=== PATIENT | female | born 1930 | race Two or more races ===

== ENCOUNTER → 2016-07-31 | Outpatient (CLI) | payer OTHER | END | disposition home or self-care (01) | LOC: LAB 13:50 | DX: Z80.0 Family history of malignant neoplasm of digestive organs (principal); N18.2 Chronic kidney disease, stage 2 (mild) | CPT/HCPCS: 82270 ==

== ENCOUNTER → 2016-08-19 | Outpatient (CLI) | payer OTHER ==
[2016-08-19 12:15] LABS: Hematocrit 47.3 % (36.0-46.0); Hemoglobin 15.8 g/dL (12.2-16.2); Mean Corpuscular Hemoglobin 30.5 pg (28.0-32.0); Mean Corpuscular Hgb Conc. 33.5 g/dL (32.0-36.0); Mean Corpuscular Volume 91.3 fL (80.0-100.0); Mean Platelet Volume 8.1 fL (7.4-10.4); Platelet Count (auto) 267 10^3/uL (140-450); Red Cell Distribution Width 13.7 % (11.6-16.0); White Blood Cell 6.3 10^3/uL (4.4-10.8)
[2016-08-19 12:28] LABS: Urine Bilirubin Negative (Negative); Urine Blood Negative /uL (Negative); Urine Color Yellow (Yellow); Urine Glucose Normal (Normal); Urine Ketone Negative (Negative); Urine Nitrite Negative (Negative); Urine RBC <1 /hpf (0 - 4); Urine Urobilinogen Normal (Negative); Urine pH 5.5 (5.0-8.0)
[2016-08-19 12:42] LABS: Metamyelocytes % 0; Myelocytes % 0; Promyelocytes % 0; Reactive Lymphocytes 0
[2016-08-19 12:59] LABS: Albumin 3.9 g/dL (3.4-5.0); BUN/Creatinine Ratio 15.4; Bilirubin, Total 1.4 mg/dL (0.2-1.0); Calcium 9.7 mg/dL (8.5-10.1); Potassium 4.1 mmol/L (3.5-5.1); Total Protein 7.9 g/dL (6.4-8.2)
[2016-08-19 14:28] LABS: Platelet Estimate Adequate; RBC Morphology Normal
== END | disposition home or self-care (01) ==
LOC: LAB 11:43
DX: N18.2 Chronic kidney disease, stage 2 (mild) (principal); Z80.0 Family history of malignant neoplasm of digestive organs
CPT/HCPCS: 36415; 80053; 80061; 81001; 84443; 85007; 85027

== ENCOUNTER → 2017-03-10 | Outpatient (CLI) | payer OTHER ==
[2017-03-10 10:28] LABS: Urine Bilirubin Negative (Negative); Urine Blood Negative /uL (Negative); Urine Color Yellow (Yellow); Urine Glucose Normal (Normal); Urine Ketone Negative (Negative); Urine Nitrite Negative (Negative); Urine RBC <1 /hpf (0 - 4); Urine Squamous Epithelial Cell FEW /hpf (<5); Urine Urobilinogen Normal (Negative); Urine pH 6.5 (5.0-8.0)
[2017-03-10 10:35] LABS: Hematocrit 45.5 % (36.0-46.0); Hemoglobin 15.5 g/dL (12.2-16.2); Mean Corpuscular Hemoglobin 31.8 pg (28.0-32.0); Mean Corpuscular Hgb Conc. 34.1 g/dL (32.0-36.0); Mean Corpuscular Volume 93.4 fL (80.0-100.0); Mean Platelet Volume 7.7 fL (6.9-10.8); Platelet Count (auto) 210 10^3/uL (140-450); Red Cell Distribution Width 13.7 % (11.8-14.3); White Blood Cell 5.6 10^3/uL (4.4-10.8)
[2017-03-10 10:54] LABS: Metamyelocytes % 0; Myelocytes % 0; Promyelocytes % 0; Reactive Lymphocytes 0
[2017-03-10 10:59] LABS: Albumin 3.7 g/dL (3.4-5.0); Bilirubin, Total 1.4 mg/dL (0.2-1.0); Calcium 9.6 mg/dL (8.5-10.1); Potassium 4.1 mmol/L (3.5-5.1); Total Protein 7.4 g/dL (6.4-8.2)
[2017-03-10 15:30] LABS: Platelet Estimate Adequate
[2017-03-10 15:31] LABS: Ovalocytes FEW; Stomatocytes Few
== END | disposition home or self-care (01) ==
LOC: LAB 09:40
PROVIDERS: ATTEND Nurse Practitioner
DX: E03.9 Hypothyroidism, unspecified (principal)
CPT/HCPCS: 36415; 80053; 80061; 81001; 82306; 82607; 83036; 84443; 85007; 85027

== ENCOUNTER 2017-05-09 13:33 | Emergency (ER) | payer OTHER ==
[~2017-05-09] VITALS: Ht 162.6 cm; Wt 79.8 kg
[2017-05-09 13:40] VITALS: BP 140/72
== END 2017-05-09 14:40 | disposition left against medical advice (07) ==
LOC: ER 13:33
DX: K08.89 Other specified disorders of teeth and supporting structures (principal); Z53.21 Procedure and treatment not carried out due to patient leaving prior to being seen by health care provider

== ENCOUNTER → 2018-03-18 | Outpatient (CLI) | payer OTHER ==
[2018-03-18 10:13] LABS: Urine Blood Negative /uL (Negative); Urine Specific Gravity 1.019 (1.001-1.035)
[2018-03-18 10:24] LABS: Hematocrit 46.4 % (36.0-46.0); Hemoglobin 15.8 g/dL (12.2-16.2); Mean Corpuscular Hemoglobin 31.5 pg (28.0-32.0); Mean Corpuscular Hgb Conc. 34.1 g/dL (32.0-36.0); Mean Corpuscular Volume 92.5 fL (80.0-100.0); Platelet Count (auto) 217 10^3/uL (140-450); Red Blood Cells 5.02 10^6/uL (4.0-5.20); Red Cell Distribution Width 13.9 % (11.8-14.3); White Blood Cell 6.5 10^3/uL (4.4-10.8)
[2018-03-18 10:30] LABS: Basophils % (manual) 0 (0.0-2.0); Blast Cells 0; Metamyelocytes % 0; Myelocytes % 0; Promyelocytes % 0; Reactive Lymphocytes 0
[2018-03-18 11:11] LABS: Albumin 3.7 g/dL (3.4-5.0); BUN/Creatinine Ratio 19.1; Bilirubin, Total 1.1 mg/dL (0.2-1.0); Calcium 9.6 mg/dL (8.5-10.1); Potassium 4.2 mmol/L (3.5-5.1); Total Protein 7.6 g/dL (6.4-8.2)
[2018-03-18 11:16] LABS: Band Neutrophils % (manual) 1; Eosinophils % (manual) 8 (0-7); Lymphocytes % (manual) 63 (10.0-50.0); Monocytes % (manual) 6 (0-12)
== END | disposition home or self-care (01) ==
LOC: LAB 09:39
PROVIDERS: ATTEND Nurse Practitioner
DX: E03.9 Hypothyroidism, unspecified (principal); E78.5 Hyperlipidemia, unspecified
CPT/HCPCS: 36415; 80053; 80061; 81003; 84443; 85007; 85027

== ENCOUNTER → 2018-08-03 | Outpatient (CLI) | payer OTHER ==
[2018-08-03 11:03] LABS: Hematocrit 45.1 % (36.0-46.0); Hemoglobin 15.3 g/dL (12.2-16.2); Mean Corpuscular Hemoglobin 31.2 pg (28.0-32.0); Mean Corpuscular Volume 91.8 fL (80.0-100.0); Platelet Count (auto) 218 10^3/uL (140-450); Red Blood Cells 4.91 10^6/uL (4.0-5.20); Red Cell Distribution Width 13.3 % (11.8-14.3); White Blood Cell 6.6 10^3/uL (4.4-10.8)
[2018-08-03 11:19] LABS: Urine Bacteria NONE SEEN /hpf (None Seen); Urine Blood Negative /uL (Negative); Urine Mucus FEW (None Seen); Urine WBC 63 /hpf (0 - 5)
[2018-08-03 11:32] LABS: Potassium 3.9 mmol/L (3.5-5.1)
[2018-08-03 11:38] LABS: BUN/Creatinine Ratio 17.5; Calcium 9.5 mg/dL (8.5-10.1)
[2018-08-03 11:42] LABS: Band Neutrophils % (manual) 0; Blast Cells 0; Metamyelocytes % 0; Myelocytes % 0; Promyelocytes % 0; Reactive Lymphocytes 0
[2018-08-03 13:24] LABS: Basophils % (manual) 1 (0.0-2.0); Eosinophils % (manual) 4 (0-7); Lymphocytes % (manual) 62 (10.0-50.0); Monocytes % (manual) 6 (0-12)
== END | disposition home or self-care (01) ==
LOC: LAB 09:19
PROVIDERS: ATTEND Nurse Practitioner
DX: E78.5 Hyperlipidemia, unspecified (principal)
CPT/HCPCS: 36415; 80048; 80061; 81001; 84443; 85007; 85027

== ENCOUNTER → 2018-10-26 | Outpatient (CLI) | payer OTHER | END | disposition home or self-care (01) | LOC: LAB 09:08 | PROVIDERS: ATTEND Internal Medicine | DX: K59.01 Slow transit constipation (principal) | CPT/HCPCS: 86677 ==

== ENCOUNTER 2018-11-25 09:51 | Day surgery (SDC) | payer OTHER ==
[2018-11-22 11:02] LABS: Basophils # (auto) 0.1 uL; Basophils % (auto) 0.9 % (0.0-2.0); Eosinophils # (auto) 0.2 uL; Eosinophils % (auto) 3.4 % (0.0-7.0); Hematocrit 46.2 % (36.0-46.0); Hemoglobin 15.5 g/dL (12.2-16.2); Lymphocytes # (auto) 4.3 uL; Mean Corpuscular Hemoglobin 30.9 pg (28.0-32.0); Mean Corpuscular Hgb Conc. 33.5 g/dL (32.0-36.0); Mean Corpuscular Volume 92.2 fL (80.0-100.0); Monocytes # (auto) 0.4 uL; Monocytes % (auto) 6.5 % (0.0-12.0); Neutrophils # (auto) 1.8 uL; Neutrophils % (auto) 26.8 % (37.0-80.0); Nucleated Red Blood Cells % 0.1 %; Platelet Count (auto) 243 10^3/uL (140-450); Red Blood Cells 5.01 10^6/uL (4.0-5.20); Red Cell Distribution Width 13.6 % (11.8-14.3); White Blood Cell 6.9 10^3/uL (4.4-10.8)
[2018-11-22 11:03] LABS: Urine Bacteria NONE SEEN /hpf (None Seen); Urine Blood Negative /uL (Negative); Urine Specific Gravity 1.016 (1.001-1.035); Urine WBC 15 /hpf (0 - 5)
[2018-11-22 11:11] LABS: Lymphocytes % (auto) 62.4 % (10.0-50.0)
[2018-11-22 11:13] LABS: INR 0.9 (0.9-1.15); Partial Thromboplastin Time 26.7 sec (23.64-32.05)
[~2018-11-25] VITALS: Ht 165.1 cm; Wt 77.1 kg
[~2018-11-25 09:51] MED LIST: LEVO25TA6 PO
[2018-11-25] MEDS ORDERED: SODIUM CHLORIDE LOCK 10 ML ONE (09:58)
[2018-11-25] MEDS ORDERED: LIDOCAINE VISCOUS 2% 15ML UD ONE (09:58)
[2018-11-25] MEDS ORDERED: diphenhdrAMINE HCL 50 MG/1 ML VL ONE (09:58)
[2018-11-25] MEDS: MIDAZOLAM HCL 5 MG/ML-1ML VIAL ONE ×3 (11:02→11:14)
[2018-11-25] MEDS: fentaNYL CITRATE 100 MCG/2 ML VL ONE ×3 (11:02→11:14)
[2018-11-25 11:52] VITALS: BP 115/67
== END 2018-11-25 12:15 | disposition home or self-care (01) ==
LOC: GI 09:51
PROVIDERS: ATTEND Internal Medicine Gastroenterology
DX: K57.30 Diverticulosis of large intestine without perforation or abscess without bleeding (principal); K29.50 Unspecified chronic gastritis without bleeding; K64.8 Other hemorrhoids; E66.9 Obesity, unspecified; Z68.28 Body mass index [BMI] 28.0-28.9, adult
CPT/HCPCS: 36415; 43239; 45378; 81001; 85025; 85610; 85730; 88305; 88342; J2250; J3010; J7030; 99152; 99153

== ENCOUNTER → 2019-01-26 | Outpatient (CLI) | payer OTHER ==
[2019-01-26 11:18] LABS: Albumin 3.6 g/dL (3.4-5.0); Calcium 9.7 mg/dL (8.5-10.1)
[2019-01-26 11:22] LABS: BUN/Creatinine Ratio 23.5; Bilirubin, Total 1.2 mg/dL (0.2-1.0); Total Protein 7.7 g/dL (6.4-8.2)
[2019-01-26 12:02] LABS: Hematocrit 45.7 % (36.0-46.0); Hemoglobin 15.4 g/dL (12.2-16.2); Mean Corpuscular Hemoglobin 31.1 pg (28.0-32.0); Mean Corpuscular Hgb Conc. 33.6 g/dL (32.0-36.0); Mean Corpuscular Volume 92.5 fL (80.0-100.0); Platelet Count (auto) 206 10^3/uL (140-450); Red Blood Cells 4.94 10^6/uL (4.0-5.20); Red Cell Distribution Width 13.7 % (11.8-14.3); White Blood Cell 6.4 10^3/uL (4.4-10.8)
[2019-01-26 12:25] LABS: Band Neutrophils % (manual) 0; Basophils % (manual) 0 (0.0-2.0); Blast Cells 0; Metamyelocytes % 0; Myelocytes % 0; Promyelocytes % 0
[2019-01-26 14:03] LABS: Eosinophils % (manual) 2 (0-7); Lymphocytes % (manual) 63 (10.0-50.0); Monocytes % (manual) 5 (0-12); Reactive Lymphocytes 1
== END | disposition home or self-care (01) ==
LOC: LAB 09:46
PROVIDERS: ATTEND Internal Medicine
DX: E03.9 Hypothyroidism, unspecified (principal); K21.9 Gastro-esophageal reflux disease without esophagitis
CPT/HCPCS: 36415; 80053; 84439; 84443; 85007; 85027

== ENCOUNTER → 2019-08-02 | Outpatient (CLI) | payer OTHER ==
[2019-08-02 11:03] LABS: Hematocrit 46.1 % (36.0-46.0); Hemoglobin 15.8 g/dL (12.2-16.2); Mean Corpuscular Hemoglobin 31.6 pg (28.0-32.0); Mean Corpuscular Hgb Conc. 34.3 g/dL (32.0-36.0); Mean Corpuscular Volume 92.2 fL (80.0-100.0); Platelet Count (auto) 221 10^3/uL (140-450); Red Cell Distribution Width 13.4 % (11.8-14.3); White Blood Cell 4.5 10^3/uL (4.4-10.8)
[2019-08-02 11:05] LABS: Urine Bacteria NONE SEEN /hpf (None Seen); Urine Blood Negative /uL (Negative); Urine Specific Gravity 1.014 (1.001-1.035); Urine WBC 6 /hpf (0 - 5)
[2019-08-02 11:07] LABS: Band Neutrophils % (manual) 0; Basophils % (manual) 0 (0.0-2.0); Blast Cells 0; Metamyelocytes % 0; Myelocytes % 0; Promyelocytes % 0; Reactive Lymphocytes 0
[2019-08-02 11:26] LABS: Eosinophils % (manual) 5 (0-7); Lymphocytes % (manual) 63 (10.0-50.0); Monocytes % (manual) 2 (0-12)
[2019-08-02 11:57] LABS: Albumin 3.6 g/dL (3.4-5.0); Calcium 9.9 mg/dL (8.5-10.1); Potassium 4.1 mmol/L (3.5-5.1)
[2019-08-02 12:03] LABS: BUN/Creatinine Ratio 20.5; Bilirubin, Total 1.1 mg/dL (0.2-1.0); Total Protein 7.7 g/dL (6.4-8.2)
== END | disposition home or self-care (01) ==
LOC: LAB 10:19
PROVIDERS: ATTEND Nurse Practitioner
DX: E78.5 Hyperlipidemia, unspecified (principal); E03.9 Hypothyroidism, unspecified
CPT/HCPCS: 36415; 80053; 80061; 81001; 84443; 85007; 85027

== ENCOUNTER → 2019-08-13 | Emergency (ER) | payer OTHER ==
[~2019-08-13] VITALS: Ht 165.1 cm; Wt 79.4 kg
[~2019-08-13] MED LIST changes: +cefTRIAXone 1GM/50ML D5W 50 ML IV ONE
[2019-08-13 02:02] LABS: Hematocrit 48.5 % (36.0-46.0); Hemoglobin 16.3 g/dL (12.2-16.2); Mean Corpuscular Hgb Conc. 33.6 g/dL (32.0-36.0); Mean Corpuscular Volume 92.4 fL (80.0-100.0); Platelet Count (auto) 243 10^3/uL (140-450); Red Blood Cells 5.25 10^6/uL (4.0-5.20); Red Cell Distribution Width 13.2 % (11.8-14.3); White Blood Cell 6.7 10^3/uL (4.4-10.8)
[2019-08-13 02:06] LABS: Basophils % (manual) 0 (0.0-2.0); Blast Cells 0; Metamyelocytes % 0; Myelocytes % 0; Promyelocytes % 0
[2019-08-13 02:17] LABS: INR 0.99 (0.9-1.15); Partial Thromboplastin Time 28.6 sec (23.64-32.05)
[2019-08-13 02:19] LABS: Alanine Aminotransferase 36 U/L (13-56); Albumin 3.9 g/dL (3.4-5.0); Anion Gap 7 (5-15); Aspartate Aminotransferase 34 U/L (15-37); BUN/Creatinine Ratio 16.7; Blood Urea Nitrogen 15 mg/dL (7-18); Calcium 9.8 mg/dL (8.5-10.1); Carbon Dioxide 25 mmol/L (21-32); Chloride 106 mmol/L (98-107); GFR African American 76 mL/min; GFR Non-African American 63 mL/min; Glucose 100 mg/dL (74-106); Magnesium 2.1 mg/dL (1.6-2.6); Potassium 3.6 mmol/L (3.5-5.1); Sodium 138 mmol/L (136-145)
[2019-08-13 02:25] LABS: Alkaline Phosphatase 98 U/L (45-117); Bilirubin, Total 0.6 mg/dL (0.2-1.0); Total Protein 8.2 g/dL (6.4-8.2)
[2019-08-13 03:06] LABS: Band Neutrophils % (manual) 1; Eosinophils % (manual) 1 (0-7); Lymphocytes % (manual) 68 (10.0-50.0); Monocytes % (manual) 3 (0-12)
[2019-08-13 03:07] LABS: Reactive Lymphocytes 2
[2019-08-13 04:04] LABS: Urine Bacteria FEW /hpf (None Seen); Urine Blood Negative /uL (Negative); Urine Hyaline Cast FEW /lpf (0 - 2); Urine Mucus FEW (None Seen); Urine WBC 123 /hpf (0 - 5)
[2019-08-13 08:01] VITALS: BP 91/64
== END | disposition home or self-care (01) ==
LOC: ER 01:28
DX: R07.89 Other chest pain (principal); N39.0 Urinary tract infection, site not specified; R14.0 Abdominal distension (gaseous); E78.5 Hyperlipidemia, unspecified; E11.9 Type 2 diabetes mellitus without complications
CPT/HCPCS: 36415; 71045; 80053; 81001; 83735; 83880; 84484; 85007; 85027; 85610; 85730; 93005; 96365; 99285; J0696

== ENCOUNTER 2019-09-19 13:24 | Emergency (ER) | payer OTHER ==
[~2019-09-19] VITALS: Ht 162.6 cm; Wt 77.1 kg
[~2019-09-19 13:24] MED LIST changes: -cefTRIAXone 1GM/50ML D5W 50 ML IV ONE
[2019-09-19] MEDS ORDERED: PANTOPRAZOLE 40 MG/10 ML VIAL INJ IV STA (13:32)
[2019-09-19] MEDS ORDERED: SODIUM CHLORIDE 0.9% 500 ML IVB ONE (13:32)
[2019-09-19] MEDS ORDERED: ONDANSETRON HCL 4 MG/2 ML VIAL IV ONE (13:45)
[2019-09-19 14:16] LABS: Hematocrit 43.3 % (36.0-46.0); Hemoglobin 14.9 g/dL (12.2-16.2); Mean Corpuscular Hemoglobin 31.2 pg (28.0-32.0); Mean Corpuscular Hgb Conc. 34.3 g/dL (32.0-36.0); Platelet Count (auto) 183 10^3/uL (140-450); Red Blood Cells 4.76 10^6/uL (4.0-5.20); Red Cell Distribution Width 13.3 % (11.8-14.3); White Blood Cell 12.9 10^3/uL (4.4-10.8)
[2019-09-19 14:21] LABS: Basophils % (manual) 0 (0.0-2.0); Blast Cells 0; Eosinophils % (manual) 0 (0-7); Metamyelocytes % 0; Myelocytes % 0; Promyelocytes % 0; Reactive Lymphocytes 0
[2019-09-19 14:31] LABS: Band Neutrophils % (manual) 1; Lymphocytes % (manual) 9 (10.0-50.0); Monocytes % (manual) 2 (0-12)
[2019-09-19 14:36] LABS: Albumin 3.4 g/dL (3.4-5.0); Calcium 9.4 mg/dL (8.5-10.1); Potassium 3.5 mmol/L (3.5-5.1)
[2019-09-19 14:39] LABS: Bilirubin, Total 1.7 mg/dL (0.2-1.0); Total Protein 7.1 g/dL (6.4-8.2)
[2019-09-19 15:36] LABS: Urine WBC None Seen /hpf (0 - 5)
[2019-09-19 15:47] LABS: Urine Bacteria NONE SEEN /hpf (None Seen); Urine Blood Negative /uL (Negative); Urine Mucus FEW (None Seen); Urine Specific Gravity 1.015 (1.001-1.035)
[2019-09-19 16:17] VITALS: BP 110/58
== END 2019-09-19 16:33 | disposition home or self-care (01) ==
LOC: EDBD 13:24 → ER 13:24
DX: K29.00 Acute gastritis without bleeding (principal); R11.2 Nausea with vomiting, unspecified
CPT/HCPCS: 36415; 74176; 80053; 81001; 83690; 85007; 85027; 96361; 96374; 96375; 99284; C9113; J2405

== ENCOUNTER → 2020-02-03 | Outpatient (CLI) | payer OTHER ==
[2020-02-03 09:42] LABS: Hematocrit 45.1 % (36.0-46.0); Hemoglobin 14.9 g/dL (12.2-16.2); Mean Corpuscular Hemoglobin 30.3 pg (28.0-32.0); Mean Corpuscular Volume 91.9 fL (80.0-100.0); Platelet Count (auto) 224 10^3/uL (140-450); Red Cell Distribution Width 14.5 % (11.8-14.3); White Blood Cell 6.6 10^3/uL (4.4-10.8)
[2020-02-03 09:49] LABS: Band Neutrophils % (manual) 0; Basophils % (manual) 0 (0.0-2.0); Blast Cells 0; Metamyelocytes % 0; Myelocytes % 0; Promyelocytes % 0
[2020-02-03 10:18] LABS: Albumin 3.7 g/dL (3.4-5.0); Calcium 9.5 mg/dL (8.5-10.1); Potassium 4.1 mmol/L (3.5-5.1)
[2020-02-03 10:25] LABS: BUN/Creatinine Ratio 20.6; Bilirubin, Total 1.5 mg/dL (0.2-1.0); Total Protein 7.4 g/dL (6.4-8.2)
[2020-02-03 11:31] LABS: Eosinophils % (manual) 3 (0-7); Lymphocytes % (manual) 57 (10.0-50.0); Monocytes % (manual) 10 (0-12); Reactive Lymphocytes 4
== END | disposition home or self-care (01) ==
LOC: LAB 08:58
PROVIDERS: ATTEND Nurse Practitioner
DX: E78.5 Hyperlipidemia, unspecified (principal)
CPT/HCPCS: 36415; 80053; 80061; 84443; 85007; 85027

== ENCOUNTER → 2020-07-04 | Outpatient (CLI) | payer OTHER ==
[2020-07-04 10:23] LABS: Hemoglobin 14.9 g/dL (12.2-16.2); Mean Corpuscular Hemoglobin 31.2 pg (28.0-32.0); Mean Corpuscular Hgb Conc. 33.9 g/dL (32.0-36.0); Mean Corpuscular Volume 92.1 fL (80.0-100.0); Platelet Count (auto) 231 10^3/uL (140-450); Red Blood Cells 4.77 10^6/uL (4.0-5.20); Red Cell Distribution Width 13.5 % (11.8-14.3); White Blood Cell 6.2 10^3/uL (4.4-10.8)
[2020-07-04 10:44] LABS: Urine Bacteria FEW /hpf (None Seen); Urine Blood Negative /uL (Negative); Urine Specific Gravity 1.011 (1.001-1.035); Urine WBC 8 /hpf (0 - 5)
[2020-07-04 10:47] LABS: Band Neutrophils % (manual) 0; Basophils % (manual) 0 (0.0-2.0); Blast Cells 0; Metamyelocytes % 0; Myelocytes % 0; Promyelocytes % 0; Reactive Lymphocytes 0
[2020-07-04 11:24] LABS: Albumin 3.6 g/dL (3.4-5.0); BUN/Creatinine Ratio 19.8; Calcium 9.4 mg/dL (8.5-10.1)
[2020-07-04 11:28] LABS: Bilirubin, Total 1.5 mg/dL (0.2-1.0); Total Protein 7.8 g/dL (6.4-8.2)
[2020-07-04 12:02] LABS: Eosinophils % (manual) 4 (0-7); Lymphocytes % (manual) 70 (10.0-50.0); Monocytes % (manual) 6 (0-12)
== END | disposition home or self-care (01) ==
LOC: LAB 10:08
PROVIDERS: ATTEND Nurse Practitioner
DX: I10 Essential (primary) hypertension (principal); E78.5 Hyperlipidemia, unspecified
CPT/HCPCS: 36415; 80053; 80061; 81001; 84443; 85007; 85027

== ENCOUNTER → 2021-09-12 | Outpatient (CLI) | payer OTHER ==
[2021-09-12 09:35] LABS: Hematocrit 43.5 % (36.0-46.0); Hemoglobin 14.9 g/dL (12.2-16.2); Mean Corpuscular Hemoglobin 30.8 pg (28.0-32.0); Mean Corpuscular Hgb Conc. 34.2 g/dL (32.0-36.0); Mean Corpuscular Volume 89.8 fL (80.0-100.0); Red Blood Cells 4.85 10^6/uL (4.0-5.20); Red Cell Distribution Width 13.3 % (11.8-14.3); Urine Bacteria NONE SEEN /hpf (None Seen); Urine Blood Negative /uL (Negative); Urine Specific Gravity 1.007 (1.001-1.035); Urine WBC 6 /hpf (0 - 5); White Blood Cell 5.6 10^3/uL (4.4-10.8)
[2021-09-12 09:46] LABS: Band Neutrophils % (manual) 0; Basophils % (manual) 0 (0.0-2.0); Blast Cells 0; Metamyelocytes % 0; Myelocytes % 0; Promyelocytes % 0; Reactive Lymphocytes 0
[2021-09-12 09:57] LABS: Eosinophils % (manual) 2 (0-7); Lymphocytes % (manual) 44 (10.0-50.0); Monocytes % (manual) 27 (0-12)
[2021-09-12 10:06] LABS: Albumin 3.7 g/dL (3.4-5.0); BUN/Creatinine Ratio 17.5; Bilirubin, Total 1.5 mg/dL (0.2-1.0); Calcium 10.1 mg/dL (8.5-10.1); Total Protein 7.7 g/dL (6.4-8.2)
== END | disposition home or self-care (01) ==
LOC: LAB 08:57
PROVIDERS: ATTEND Student in an Organized Health Care Education/Training Program
DX: E03.9 Hypothyroidism, unspecified (principal); I10 Essential (primary) hypertension
CPT/HCPCS: 36415; 80053; 80061; 81001; 84443; 85007; 85027